=== PATIENT | female | born 1985 | race Two or more races ===

== ENCOUNTER 2022-05-10 17:51 | Emergency (ER) | payer OTHER ==
[~2022-05-10] VITALS: Ht 144.8 cm; Wt 63.0 kg
[2022-05-10 18:37] VITALS: BP 142/88
== END 2022-05-10 20:17 | disposition left against medical advice (07) ==
LOC: ER 18:06
DX: Z53.21 Procedure and treatment not carried out due to patient leaving prior to being seen by health care provider (principal)